=== PATIENT | female | born 1940 | race Caucasian/White ===

== ENCOUNTER 2021-09-14 09:56 | Outpatient (CLI) | payer MEDICARE, BC, SELFPAY ==
[2021-09-14 12:03] LABS: Chloride* 103 mmol/L (96-114); Potassium* 4.3 mmol/L (3.6-5.1); Sodium* 135 mmol/L (135-149)
[2021-09-14 12:05] LABS: Cholesterol* 231 mg/dL (90-199); Creatinine* 0.7 mg/dL (0.5-1.5); Estimated Glomerular Filt Rate 88 ml/min
[2021-09-14 12:06] LABS: Alanine Aminotransferase* 27 U/L (4-35); Alkaline Phosphatase* 62 U/L (40-150); Aspartate Amino Transferase* 33 U/L (12-35); Bilirubin Total* 0.6 mg/dL (0.1-1.5); Blood Urea Nitrogen* 20 mg/dL (7-30); Calcium* 9.6 mg/dL (8.4-10.6); Carbon Dioxide* 24 mmol/L (20-32); Glucose* 92 mg/dL (60-115); HDL Cholesterol* 71 mg/dL (>=50); LDL Cholesterol Calculated 138 mg/dL (<100); Total Protein* 6.9 g/dL (6.0-8.3); Triglycerides* 107 mg/dL (40-149)
[2021-09-14 12:17] LABS: Vitamin D 25 Hydroxy* 62 ng/mL (30-80)
== END 2021-09-14 09:57 | disposition home or self-care (01) ==
PROVIDERS: PCP Family Medicine; Visit Provider Family Medicine
DX: Z00.00 Encounter for general adult medical examination without abnormal findings (principal); E78.5 Hyperlipidemia, unspecified; E03.9 Hypothyroidism, unspecified; I10 Essential (primary) hypertension; M85.80 Other specified disorders of bone density and structure, unspecified site; G62.9 Polyneuropathy, unspecified
CPT/HCPCS: 80053; 80061; 82306; 84443

== ENCOUNTER 2022-07-02 05:27 | Outpatient (CLI) | payer MEDICARE, BC, SELFPAY | END 2022-07-02 05:28 | disposition home or self-care (01) | LOC: AMB 07-05 11:52 | PROVIDERS: PCP Family Medicine; Visit Provider Family Medicine | DX: R53.1 Weakness (principal) | CPT/HCPCS: A0998 ==

== ENCOUNTER 2022-12-13 11:16 | Outpatient (CLI) | payer MEDICARE, BC, SELFPAY | END 2022-12-13 11:17 | disposition home or self-care (01) | LOC: NFLDREF 11:18 | PROVIDERS: PCP Family Medicine; Visit Provider Family Medicine | DX: E03.9 Hypothyroidism, unspecified (principal); E66.9 Obesity, unspecified; E78.5 Hyperlipidemia, unspecified; Z79.01 Long term (current) use of anticoagulants; Z79.1 Long term (current) use of non-steroidal anti-inflammatories (NSAID); M85.80 Other specified disorders of bone density and structure, unspecified site; G60.9 Hereditary and idiopathic neuropathy, unspecified; I10 Essential (primary) hypertension; Z13.21 Encounter for screening for nutritional disorder | CPT/HCPCS: 80053; 80061; 82306; 84443 ==

== ENCOUNTER 2023-12-01 11:46 | Outpatient (CLI) | payer MEDICARE, BC, SELFPAY | END 2023-12-01 11:47 | disposition home or self-care (01) | LOC: AMB 12-04 | PROVIDERS: PCP Family Medicine; Visit Provider Emergency Medicine | DX: R53.1 Weakness (principal) | CPT/HCPCS: A0998 ==

== ENCOUNTER 2024-02-18 04:07 | Outpatient (CLI) | payer MEDICARE, BC, SELFPAY | END 2024-02-18 04:08 | disposition home or self-care (01) | LOC: AMB 02-19 14:52 | PROVIDERS: PCP Family Medicine; Visit Provider Family Medicine | DX: R53.1 Weakness (principal) | CPT/HCPCS: A0998 ==

== ENCOUNTER 2024-06-25 05:50 | Outpatient (CLI) | payer MEDICARE, BC, SELFPAY ==
--- NOTE | 2024-08-15 11:20 | PC.SOCIAL ---
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 Hall for a check-in and to renew her medications. Pt has made an appointment for 09/05/[address] Hall and plans to take the [facility] transit, as she is currently using a wheelchair and the [facility] transit vans are wheelchair accessible. Social work to follow-up as needed.
== END 2024-06-25 05:51 | disposition home or self-care (01) ==
LOC: AMB 06-26 10:15
PROVIDERS: PCP Family Medicine; Visit Provider Student in an Organized Health Care Education/Training Program
DX: R53.1 Weakness (principal)
CPT/HCPCS: A0998

== ENCOUNTER 2024-09-16 09:40 | Outpatient (CLI) | payer MEDICARE, BC, SELFPAY | END 2024-09-16 09:41 | disposition home or self-care (01) | LOC: NFLDREF 09-18 02:09 | PROVIDERS: PCP Family Medicine; Referring Provider Family Medicine; Visit Provider Family Medicine | DX: E03.9 Hypothyroidism, unspecified (principal); E78.5 Hyperlipidemia, unspecified; M85.80 Other specified disorders of bone density and structure, unspecified site; M81.0 Age-related osteoporosis without current pathological fracture; E53.8 Deficiency of other specified B group vitamins | CPT/HCPCS: 80053; 80061; 82306; 84443 ==